=== PATIENT | male | born 1950 | race Caucasian/White ===

== ENCOUNTER 2023-02-10 07:55 | Outpatient (CLI) | payer BC, SELFPAY | END 2023-02-10 07:56 | disposition home or self-care (01) | LOC: NFLDREF 02-11 11:01 | PROVIDERS: PCP Family Medicine; Referring Provider Family Medicine; Visit Provider Family Medicine | DX: R73.03 Prediabetes (principal); N40.0 Benign prostatic hyperplasia without lower urinary tract symptoms; E78.5 Hyperlipidemia, unspecified | CPT/HCPCS: 80053; 80061; 84153 ==

== ENCOUNTER 2023-05-05 10:56 | Outpatient (REF) | payer BC, SELFPAY ==
[2023-05-05 11:57] LABS: PSA Diagnostic* 2.38 ng/mL (0.10-4.00)
== END 2023-05-05 10:57 | disposition home or self-care (01) ==
LOC: NPINS 10:56
PROVIDERS: PCP Family Medicine; Visit Provider Urology
DX: R97.20 Elevated prostate specific antigen [PSA] (principal)
CPT/HCPCS: 84153

== ENCOUNTER 2023-09-13 09:34 | Outpatient (CLI) | payer BC, SELFPAY ==
--- NOTE | 2023-09-13 09:30 | CRLHL7_ITS ---
For Patients: As a result of the Cures Act, medical imaging exams and procedure reports are released immediately into your electronic medical record. You may view this report before your referring provider. If you have questions, please contact your health care provider. INDICATION: Total knee arthroplasty. TECHNIQUE: Single standing view of the knees. FINDINGS: Right total knee arthroplasty. There is a left knee arthroplasty as well. The left tibial component appears to be radiolucent. No acute malalignment. IMPRESSION: Postsurgical changes as described. Dictated by Kaiser Waldron MD @ 09/14/2023 11:14:57 AM (Electronically Signed)
--- NOTE | 2023-09-13 09:45 | CRLHL7_ITS ---
For Patients: As a result of the Cures Act, medical imaging exams and procedure reports are released immediately into your electronic medical record. You may view this report before your referring provider. If you have questions, please contact your health care provider. INDICATION: Right total knee arthroplasty. TECHNIQUE: Three views of the right knee. FINDINGS: Right total knee arthroplasty. Patellar resurfacing. The components are adequately aligned and well seated. No loosening. No suprapatellar effusion. IMPRESSION: Right total knee arthroplasty. The components are adequately aligned and well seated. Dictated by Kaiser Waldron MD @ 09/14/2023 11:13:36 AM (Electronically Signed)
== END 2023-09-13 09:35 | disposition home or self-care (01) ==
LOC: RAD 09:34
PROVIDERS: PCP Family Medicine
DX: Z96.651 Presence of right artificial knee joint (principal); Z96.652 Presence of left artificial knee joint
CPT/HCPCS: 73562; 73565

== ENCOUNTER 2024-03-07 09:36 | Outpatient (CLI) | payer BC, SELFPAY | END 2024-03-07 09:37 | disposition home or self-care (01) | LOC: NFLDREF 09:37 | PROVIDERS: PCP Family Medicine; Visit Provider Family Medicine | DX: Z00.00 Encounter for general adult medical examination without abnormal findings (principal); N40.0 Benign prostatic hyperplasia without lower urinary tract symptoms; I10 Essential (primary) hypertension; R73.03 Prediabetes; M35.3 Polymyalgia rheumatica | CPT/HCPCS: 80053; 80061; G0103 ==